=== PATIENT | female | born 1985 ===

== ENCOUNTER 2022-05-27 19:35 | Emergency (ER) | payer BC ==
[2022-05-27] MEDS ORDERED: Sodium Chloride 0.9% 10 ML Syringe FLUSH PRN (20:11)
[2022-05-27] MEDS ORDERED: Sodium Chloride 0.9% 2.5 ML Syringe FLUSH PRN (20:11)
[2022-05-27 21:08] LABS: CARBON DIOXIDE,CO2 27.1 mmol/L (21.0-32.0); POTASSIUM,K 3.8 mmol/L (3.5-5.1)
[2022-05-27] MEDS ORDERED: Iopamidol 755 MG/ML 500 ML Multipack Bottle IVPUSH ONE (22:02)
== END 2022-05-28 00:23 | disposition home or self-care (01) ==
LOC: MW.ED 19:35
DX: K80.20 Calculus of gallbladder without cholecystitis without obstruction (principal); Z20.822 Contact with and (suspected) exposure to COVID-19
CPT/HCPCS: 36415; 71045; 71275; 74174; 80053; 81001; 81025; 84484; 85025; 87086; 87635; 93005; 99284; J3490; Q9967; U0002